=== PATIENT | female | born 1990 | race Two or more races ===

== ENCOUNTER 2020-05-13 19:00 | Emergency (ER) | payer MEDICAID ==
[~2020-05-13] VITALS: Ht 162.6 cm; Wt 105.7 kg
--- NOTE | 2020-05-13 19:09 | NUR ---
ED Nurse Note: patient went to the restroom.
--- NOTE | 2020-05-13 19:32 | Emergency Room Report ---
History of Present Illness General Chief Complaint: Complications Source: Patient Present Illness HPI Disclaimer: Please note that this report is being documented using DRAGON technology. This can lead to erroneous entry secondary to incorrect interpretation by the dictating instrument. HPI: 30-year-old female G7, P5 approximately 18 weeks presented for concern for vaginal spotting. Associated mild nausea. No diarrhea. No vomiting. No fever. No shortness of breath. She denies any abdominal pain. 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 Patient History Now: Yes - 18 weeks : 7 Para: 4 Reviewed Nursing Documentation: PMH: Agreed; PSxH: Agreed Nursing Documentation-PMH Past Medical History: No History, Except For Hx Seizures: Yes Review of Systems All Other Systems: negative except mentioned in HPI Physical Exam Vital Signs Date Time Temp Pulse Resp B/P (MAP) Pulse Ox O2 Delivery O2 Flow Rate FiO2 05/13/20 19:16 98.6 99 20 123/79 (94) 98 Room Air Sp02 EP Interpretation: reviewed, normal General Appearance: well appearing, no apparent distress Head: normocephalic, atraumatic Eyes: bilateral eye PERRL, bilateral eye EOMI ENT: hearing grossly normal, moist mucus membranes Neck: full range of motion, supple Respiratory: lungs clear, normal breath sounds, no rhonchi, no respiratory distress, no retraction, no wheezing Cardiovascular #1: normal peripheral pulses, regular rate, rhythm, no murmur Gastrointestinal: non tender, soft, non-distended, no guarding, other - Gravid uterus Neurologic: alert, oriented x3, no focal defects Skin: normal color, warm/dry Medical Decision Making Diagnostic Impression: Primary Impression: Vaginal bleeding during Additional Impression: UTI (urinary tract infection) ER Course MDM: Differential diagnosis included but not limited to threatened miscarriage, spontaneous , UTI to name a few Clinical course-laboratory studies were sent. Ultrasound ordered. Ultrasound demonstrated a viable intrauterine approximately 14 weeks. Urinalysis demonstrated evidence of 1+ leukocytes. Will plan to treat with p.o. antibiotics. Otherwise patient in no acute distress. Will be discharged home with outpatient OB follow-up. Return precautions were given. Labs - Laboratory Tests Test 05/13/20 19:16 05/13/20 19:36 Urine Color Yellow Urine Appearance Slightly cloudy Urine pH 6 (4.5-8.0) Urine Specific [place] 1.025 (1.005-1.035) Urine Protein 1+ (NEGATIVE) H Urine Glucose (UA) Negative (NEGATIVE) Urine Ketones Negative (NEGATIVE) Urine Blood 2+ (NEGATIVE) H Urine Nitrite Negative (NEGATIVE) Urine Bilirubin Negative (NEGATIVE) Urine Urobilinogen Normal MG/DL (0.0-1.0) Urine Leukocyte Esterase 1+ (NEGATIVE) H Urine RBC 5-10 /HPF (0 - 2) H Urine WBC 2-4 /HPF (0 - 2) Urine Squamous Epithelial Cells Moderate /LPF (NONE/OCC) H Urine Bacteria Few /HPF (NONE) Urine HCG, Qualitative Positive (NEGATIVE) White Blood Count 13.8 K/UL (4.8-10.8) H Red Blood Count 4.27 M/UL (4.20-5.40) Hemoglobin 11.9 G/DL (12.0-16.0) L Hematocrit 38.4 % (37.0-47.0) Mean Corpuscular Volume 90 FL (80-99) Mean Corpuscular Hemoglobin 27.8 PG (27.0-31.0) Mean Corpuscular Hemoglobin Concent 30.9 G/DL (32.0-36.0) L Red Cell Distribution Width 13.4 % (11.6-14.8) Platelet Count 293 K/UL (150-450) Mean Platelet Volume 6.7 FL (6.5-10.1) Neutrophils (%) (Auto) 76.4 % (45.0-75.0) H Lymphocytes (%) (Auto) 15.4 % (20.0-45.0) L Monocytes (%) (Auto) 5.0 % (1.0-10.0) Eosinophils (%) (Auto) 2.4 % (0.0-3.0) Basophils (%) (Auto) 0.8 % (0.0-2.0) Sodium Level 138 MMOL/L (136-145) Potassium Level 3.4 MMOL/L (3.5-5.1) L Chloride Level 104 MMOL/L (98-107) Carbon Dioxide Level 24 MMOL/L (21-32) Anion Gap 10 mmol/L (5-15) Blood Urea Nitrogen 12 mg/dL (7-18) Creatinine 0.6 MG/DL (0.55-1.30) Estimated Glomerular Filtration Rate > 60 mL/min (>60) Glucose Level 86 MG/DL (74-106) Calcium Level 9.3 MG/DL (8.5-10.1) Total Bilirubin 0.1 MG/DL (0.2-1.0) L Aspartate Amino Transferase (AST) 10 U/L (15-37) L Alanine Aminotransferase (ALT) 13 U/L (12-78) Alkaline Phosphatase 64 U/L (46-116) Total Protein 7.6 G/DL (6.4-8.2) Albumin 3.1 G/DL (3.4-5.0) L Globulin 4.5 g/dL Albumin/Globulin Ratio 0.7 (1.0-2.7) L Human Chorionic Gonadotropin, Quant Pending On reevaluation: Patient in no acute distress Plan-discharge home on p.o. antibiotic. CT/MRI/US Diagnostic Results CT/MRI/US Diagnostic Results : Impression OB ultrasound Viable 14-week intrauterine with normal heart rate Last Vital Signs Date Time Temp Pulse Resp B/P (MAP) Pulse Ox O2 Delivery O2 Flow Rate FiO2 05/13/20 19:16 98.6 99 20 123/79 (94) 98 Room Air Status: improved Disposition: HOME, SELF-CARE Condition: Improved Scripts Nitrofurantoin Monohyd/M-Cryst* (MACROBID 100 MG*) 100 Mg Capsule 100 MG ORAL EVERY 12 HOURS, #14 CAP Prov: Catarino Pena M.D. 05/13/20 Catarino Pena M.D. May 13, 2020 19:32
[2020-05-13 19:38] LABS: APPEARANCE,URINE SLIGHTLY CLOUDY; BILIRUBIN, URINE NEGATIVE (NEGATIVE); GLUCOSE, URINE (UA) NEGATIVE (NEGATIVE); KETONES,URINE NEGATIVE (NEGATIVE); LEUKOCYTE ESTERASE ,URINE 1+ (NEGATIVE); NITRITE,URINE NEGATIVE (NEGATIVE); PH,URINE 6 (4.5-8.0); PROTEIN,URINE 1+ (NEGATIVE); UROBILINOGEN,URINE NORMAL MG/DL (0.0-1.0)
--- NOTE | 2020-05-13 19:42 | NUR ---
ED Nurse Note: patient came in ambulatory, aox4, stable vitals c/o vaginal bleeding during , blood and urine specimens sent to lab
[2020-05-13 19:49] LABS: BASOPHILS % (AUTO) 0.8 % (0.0-2.0); EOSINOPHILS % (AUTO) 2.4 % (0.0-3.0); HEMATOCRIT 38.4 % (37.0-47.0); HEMOGLOBIN 11.9 G/DL (12.0-16.0); LYMPHOCYTES % (AUTO) 15.4 % (20.0-45.0); MEAN CORPUSCULAR VOLUME 90 FL (80-99); NEUTROPHILS % (AUTO) 76.4 % (45.0-75.0); PLATELET COUNT 293 K/UL (150-450); RED BLOOD COUNT 4.27 M/UL (4.20-5.40); RED CELL DISTRIBUTION WIDTH 13.4 % (11.6-14.8); WHITE BLOOD COUNT 13.8 K/UL (4.8-10.8)
[2020-05-13 19:58] LABS: COLOR,URINE YELLOW
[2020-05-13 19:59] LABS: ANION GAP 10 mmol/L (5-15); BLOOD UREA NITROGEN 12 mg/dL (7-18); CALCIUM 9.3 MG/DL (8.5-10.1); CARBON DIOXIDE 24 MMOL/L (21-32); CHLORIDE 104 MMOL/L (98-107); CREATININE 0.6 MG/DL (0.55-1.30); POTASSIUM 3.4 MMOL/L (3.5-5.1); SODIUM 138 MMOL/L (136-145)
[2020-05-13 20:04] LABS: ALANINE AMINOTRANSFERASE 13 U/L (12-78); ALBUMIN 3.1 G/DL (3.4-5.0); ALBUMIN/GLOBULIN RATIO 0.7 (1.0-2.7); ALKALINE PHOSPHATASE 64 U/L (46-116); ASPARTATE AMINO TRANSFERASE 10 U/L (15-37); BILIRUBIN,TOTAL 0.1 MG/DL (0.2-1.0)
[2020-05-13] MEDS ORDERED: NITROFURANTOIN100 M2 ORAL (20:10)
--- NOTE | 2020-05-13 20:23 | Diagnostic Imaging Report ---
EXAM: US , Transvaginal CLINICAL HISTORY: PAINPAIN TECHNIQUE: Real-time endovaginal obstetrical ultrasound of the maternal pelvis and second or third trimester with image documentation. Endovaginal imaging was used for better evaluation of the fetus and adnexa. COMPARISON: No previous studies. FINDINGS: Fetus: Single viable intrauterine gestation is noted. Heart rate: heart rate is 150 bpm. Presentation: Fetus is in variable presentation. Placenta: Placenta is noted in the fundal region. No abruption. Amniotic fluid: Unremarkable. Anatomy: See below. BIOMETRICS Gestational age: Gestational age by LMP is 20 weeks 4 days. Gestational age by today's study is 14 weeks 5 days. Gestational age is 14 weeks 5 days. AMARJIT: Estimated date of delivery by LMP 09/26/2020. Estimated date of delivery by 3 studies 11/06/2020. EFW: Estimated weight was not assessed. BPD: Biparietal diameter 3.1 cm corresponding to 15 weeks 0 days. HC: Head circumference 9.3 cm corresponding to 14 weeks 2 days. AC: Abdominal circumference 10.1 cm corresponding to 16 weeks 1 day. FL: Femur length 2.16 m corresponding to 18 weeks 0 days. MATERNAL: Uterus: Unremarkable. No myometrial mass. Cervix: Cervix measures 4.5 cm and is closed. Adnexa: Neither ovary is visualized. Free fluid: No free fluid. IMPRESSION: 1. Single viable intrauterine gestation corresponding to gestational age of 14 weeks 5 days. 2. heart rate is 150 bpm. 3. Cervix measures 4.5 cm and is closed. 4. Neither ovary was visualized due to bowel gas.
[2020-05-13 20:27] VITALS: BP 136/74
== END 2020-05-13 20:00 | disposition home or self-care (01) ==
LOC: EMR 19:34
DX: O20.9 Hemorrhage in early pregnancy, unspecified (principal); O23.42 Unspecified infection of urinary tract in pregnancy, second trimester; Z3A.14 14 weeks gestation of pregnancy; G40.909 Epilepsy, unspecified, not intractable, without status epilepticus
CPT/HCPCS: 36415; 76805; 76817; 80053; 81003; 81025; 84702; 85025; Z7502; 99284